=== PATIENT | male | born 1960 | race African-American/Black ===

== ENCOUNTER 2023-11-04 08:34 | Emergency (ER) | payer BC, SELFPAY ==
[2023-11-04 08:36] VITALS: BP 130/84
--- NOTE | 2023-11-04 10:00 | ED.GENMED ---
History of Present Illness
General
Chief Complaint: Musculo-Skeletal Complaint
Source: patient
Exam Limitations: none
Time Seen by Provider: 11/04/23 09:10
Nursing documentation reviewed up to this point in time: agreed with
Travel History
Have you had any contact with someone who has COVID-19?: No
Do you have any symptoms of coronavirus? Fever > 100 degrees, chills, cough, shortness of breath, sore throat, loss of taste or smell, muscle aches, or headache?: No
History of Present Illness
History of Present Illness:
The patient is a 63-year-old man who reports that 3 days ago he tripped over a curb, twisting his right ankle. Patient reports he did not hit his head. He denies any other areas of injury. The patient reports that initially he was able to get up
and walk around with no discomfort. However, he has noticed since then, the outer aspect of his ankle is now swollen and slightly painful. However, he reports he is able to walk without a limp. Patient denies all other complaints. He denies
weakness and numbness of the legs. He reports he has had several episodes of twisting of his ankle in the past many years ago while playing basketball. He denies any known fractures of his ankle in the past. However, he reports that it is always
possible due to various injuries.
Past History
Past History
ED Past Medical History: NIDDM
ED Past Surgical History: Orthopedic
Social History
Tobacco: Non-smoker
Alcohol: Other
Drug: Former user
Personal:
Living: with family
Employment: Other
Family History
Family History: Other
Review of Systems
Review of Systems
Allergies reviewed?: Yes
All Other Systems: ROS reviewed and negative except as documented in HPI and ROS
Constitutional: Reports no symptoms
EENT: Reports no symptoms
Respiratory: Reports no symptoms
Cardiac: Reports no symptoms
ABD/GI: Reports no symptoms
: Reports no symptoms
Musculoskeletal: Reports joint pain, joint swelling and muscle pain
Skin: Reports no symptoms
Neurological: Reports no symptoms
Endocrine: Reports no symptoms
Hematologic/Lymphatic: Reports no symptoms
Psychiatric: Reports no symptoms
Phy Exam
Physical Exam
Physical Exam:
Physical Exam
General: no apparent distress, not acutely ill . Atraumatic appearing face and head
Neck: supple.
Heart: s1/s2 regular rate and rhythm,
Lungs: no acute respiratory distress.
Abdomen: Soft
Neuro: alert and oriented. no focal neurological deficits
Skin: no rash. No lacerations or ecchymoses
Psychiatric: well kept. interactive and cooperative
Extremities: Strong pulses in bilateral feet. Mild swelling and soft tissue tenderness of lateral right ankle area. Patient ambulating without difficulty.
Course
Orders/Labs/Results
Orders:
Orders
11/04/23 08:39
Ankle, Right 3 view CR [CR Ankle - Right Min 3 Views *] Urgent
Comment:
Reason For Exam: injury
11/04/23 09:[address] Non Medication Order As Directed
Physician Order: miah wrap right ankle
Vital Signs
Initial and Last Documented VS:
Initial Vital Signs
Temp Pulse Resp BP Pulse Ox
97.4 F 69 16 130/84 99
11/04/23 08:36 11/04/23 08:36 11/04/23 08:36 11/04/23 08:36 11/04/23 08:36
Last Documented Vital Signs
Temp Pulse Resp BP Pulse Ox
97.4 F 69 16 130/84 99
11/04/23 08:36 11/04/23 08:36 11/04/23 08:36 11/04/23 08:36 11/04/23 08:36
MDM/Problems Addressed
Differential Diagnosis Includes:
Right ankle sprain, right ankle fracture, bony contusion
MDM/Problems Addressed:
Patient presents with acute right ankle swelling and pain
Acute Exacerbation and/or Progression of Chronic Illness:
Patient is acutely hypertensive but only very mildly
Acute Exacerbation and/or Progression of Chronic Illness: HTN
*Radiology
Radiology exam reviewed: preliminary read by ED provider (Right ankle reviewed by me. No acute fracture) and radiology read reviewed
*Pulse Oximetry
Patient hypoxic: no
*EKG
Interpreted by ED Provider?: NA
*Greenstone Polisher Operator Interpretation
Rate: [employer] Polisher Operator- N/A
*Critical Care Note
Total Time (30-74mins, 75-104mins- exclusive of procedures): Not Applicable
Data Reviewed
Source: patient
Patient Management
Discussion with other providers: Radiologist and Other (Showed x-rays to Dr. Jones who agreed that ankle does not appear acutely fractured)
Escalation/DeEscalation of care consider admission/obs:
Patient looks well and comfortable. He is strong pulses in his feet. There is no sign of head or neck trauma. I explained to the patient that the x-ray shows that he likely fractured his right ankle in the past but after reviewing it with
orthopedic doctor, we feel these fractures look chronic and not acute. I explained that this is likely an ankle sprain and not an acute fracture. Patient has minimal pain and is walking around, therefore, it is very doubtful to be an acute
fracture.
ED Attending Note
-
Portions of this chart may have been created with voice recognition software.� Occasional wrong word or��sound alike� substitutions may have occurred due to the inherent limitations of voice recognition software.
Discharge Plan
Departure
Patient Disposition: Home (Routine Discharge)
Date of Disposition: 11/04/23
Time of Disposition: 09:39
Patient with high blood pressure during this ER visit?: Yes
Condition: Good
Covid-19: Not Applicable
Discharge Problem:
Right ankle sprain
Instructions: Ankle Sprain (DC)
Prescriptions:
No Action
multivitamin 1 EACH tablet
3 tablets PO DAILY
Patient Comments:
[employer] Ultimate Man 50+
aspirin [Jose E Low Dose Aspirin] 81 MG tablet,delayed release (DR/EC)
81 mg PO DAILY
losartan 25 MG tablet
25 mg PO DAILY
atorvastatin 40 MG tablet
40 mg PO QPM Qty: 90 10RF
nitroglycerin 0.4 MG tablet, sublingual
0.4 mg sublingual [id number] PRN (Reason: chest pain) Qty: 25 5RF
metformin 500 MG tablet
1,000 mg PO DAILY Qty: 0 0RF
Rx Instructions:
Resume on
Referrals:
Dane Gray MD [Family Provider] -
Activity Restrictions/Additional Instructions:
Take Aleve every 12 hours as needed for pain and swelling. It is important to ice and elevate your right ankle several times a day to reduce swelling and pain. Wear the Miah wrap for support while walking. It could certainly be taken off for
showering
Please follow-up with your doctor in about a week if you are still having moderate pain in your right ankle.
Interventions
Interventions:
*Risk Screen - Suicide Last Done: 11/04/23 08:36
*General Assessment Last Done: 11/04/23 08:36
*Neglect/Abuse Screening Last Done: 11/04/23 08:36
ED- Fall Risk Assessment Last Done: 11/04/23 10:02
*ED COVID-19 Vaccine History Last Done: 11/04/23 10:02
*Nursing Disposition Last Done: 11/04/23 10:02
ED-Musculoskeletal Assessment Last Done: 11/04/23 10:02
Discharge Date and Time
Discharge Date/Time: 11/04/23 10:03
== END 2023-11-04 10:03 | disposition home or self-care (01) ==
LOC: EMR 08:34
PROVIDERS: EMERGENCY PHYSICIAN Emergency Medicine; FAMILY PHYSICIAN Family Medicine
DX: S93.401A Sprain of unspecified ligament of right ankle, initial encounter (principal); W18.09XA Striking against other object with subsequent fall, initial encounter; R03.0 Elevated blood-pressure reading, without diagnosis of hypertension
CPT/HCPCS: 99283; 73610

== ENCOUNTER 2024-06-08 08:50 | Emergency (ER) | payer BC, SELFPAY ==
[2024-06-08 08:52] VITALS: BP 177/109
--- NOTE | 2024-06-08 09:05 | ED.GENMED ---
History of Present Illness
General
Chief Complaint: Heart Rate Problem
Source: patient
Time Seen by Provider: 06/08/24 09:04
History of Present Illness
History of Present Illness:
63yoM with a history of coronary artery disease, hypertension, hyperlipidemia, and type 2 diabetes presenting with his for evaluation of palpitations. Patient was sitting this morning around 8:15am when he started to feel like his heart was
fluttering. He put on his AppleWatch which indicated that he was in atrial fibrillation. He has no history of afib or arrhythmias. He is otherwise asymptomatic and denies any dizziness, syncope, chest pain, shortness of breath, leg swelling.
Patient's director of optimization is Dr. Condon.
Past History
Past History
ED Past Medical History: NIDDM
ED Past Surgical History: Orthopedic
Social History
Tobacco: Non-smoker
Alcohol: Other
Drug: Former user
Personal:
Living: with family
Employment: Other
Family History
Family History: Other
Phy Exam
General Physical Exam
General Presentation: well appearing and no apparent distress
General age: appears stated age
General Skin: warm and dry
General Habitus: normal
General Mental: alert
ENT Exam
ENT Exam: normocephalic
Cardiovascular Exam
Cardiovascular Exam: no edema, no murmur, normal peripheral pulses and irregularly irregular
Pulmonary Exam
Pulmonary Exam: lungs clear, no respiratory distress, no crackles and no wheezing
Tony Coma Scale
Eye Opening: Spontaneous
Verbal Response: Oriented
Motor Response: Obeys Commands
GCS Total Score: 15
Skin Exam
Skin Exam: normal color and warm/dry
Psychiatric Exam
Psychiatric Exam: normal mood/affect
Course
Orders/Labs/Results
Orders:
Orders
06/08/24 08:52
EKG [Electrocardiogram (*1)] Urgent
Reason for Study: Tachycardia
EKG- Treatment ONCE
06/08/24 09:37
Cardiac Monitoring- Treatment ONCE
Complete Blood Count/With Diff Urgent
Comprehensive Metabolic Panel Urgent
Magnesium Urgent
TSH Reflex To Free T4 Urgent
Troponin I Urgent
06/08/24 11:38
Metoprolol [Lopressor] 25 mg PO NOW STA
06/08/24 11:39
Apixaban [Eliquis] 10 mg PO ONCE ONE
06/08/24 11:53
Apixaban [Eliquis] 5 mg PO ONCE ONE
06/08/24 11:57
Case Management Consult ONCE
Case Management Consult: Discharge Planning
Comment: Eliquis pricing
Abnormal Lab Results
06/08/24
09:37
WBC 4.5 L 10^3/uL
(4.8-10.8)
MCH 26.8 L pg
(27.0-31.0)
RDW 15.1 H %
(11.5-14.5)
MPV 12.4 H fL
(7.4-10.4)
Neutrophils % 38.9 L %
(42.2-75.2)
Monocytes % 12.7 H %
(1.7-9.3)
BUN 21 H mg/dl
(9-20)
Glucose 126 H mg/dl
(70-99)
06/08/24 09:37
06/08/24 09:37
Vital Signs
Initial and Last Documented VS:
Initial Vital Signs
Temp Pulse Resp BP Pulse Ox
97.8 F 54 16 177/109 99
06/08/24 08:52 06/08/24 08:52 06/08/24 08:52 06/08/24 08:52 06/08/24 08:52
Last Documented Vital Signs
Temp Pulse Resp BP Pulse Ox
97.8 F 76 15 143/91 99
06/08/24 08:52 06/08/24 12:29 06/08/24 10:45 06/08/24 12:29 06/08/24 12:29
MDM/Problems Addressed
Differential Diagnosis Includes:
63yoM here with palpitations that began this morning. Otherwise asymptomatic. No CP/SOB. No dizziness. VSS. He is well appearing in no distress. Exam shows an irregularly irregular rhythm but is otherwise reassuring. Differential diagnosis includes
but is not limited to: arrhythmia, thyroid dysfunction, electrolyte abnormality
Initial ED plan: EKG done in triage shows rate controlled atrial flutter. No prior history of this. Patient placed on case monitor. Will check cardiac labs, magnesium, and TSH.
*EKG
Interpreted by ED Provider?: Yes
EKG Intrepretation Date: 06/08/24
Heart Rate: 72
Rate: normal
Rhythm: atrial flutter
Kramer: normal axis
Interval: normal interval
QRS Pattern: normal QRS
Ischemia: non-specific ST changes
*Critical Care Note
Total Time (30-74mins, 75-104mins- exclusive of procedures): Not Applicable
Update Note
Update Note:
Labs overall unremarkable including normal electrolytes, TSH, and troponin. Patient remains rate controlled throughout ED stay and is not requiring any IV medications. Patient reports minimal symptoms on reassessment. He is not anticoagulated and
therefore is not a candidate for cardioversion at this time. Discussed with cardiology (Dr. Collins) who agrees with discharge. Patient was started on metoprolol and Eliquis. Case management consulted for Eliquis pricing and he was provided with
coupons. He was advised to f/u closely with his director of optimization. Strict ED return precautions discussed. He expressed understanding and is agreeable to plan. He was discharged in stable condition.
ED Attending Note
-
Portions of this chart may have been created with voice recognition software.� Occasional wrong word or��sound alike� substitutions may have occurred due to the inherent limitations of voice recognition software.
Discharge Plan
Departure
Patient Disposition: Home (Routine Discharge)
Date of Disposition: 06/08/24
Time of Disposition: 11:47
Patient with high blood pressure during this ER visit?: Yes
Discharge Problem:
Atrial fibrillation and flutter
Instructions: Apixaban, Atrial Fibrillation and Atrial Flutter ED, Chest Pain CBC Follow Up
Prescriptions:
New
metoprolol tartrate 25 mg tablet
25 mg PO BID Qty: 60 0RF
Eliquis 5 mg tablet
5 mg PO BID Qty: 60 0RF
No Action
multivitamin 1 EACH tablet
3 tablets PO DAILY
Patient Comments:
[employer] Ultimate Man 50+
aspirin [Jose E Low Dose Aspirin] 81 MG tablet,delayed release (DR/EC)
81 mg PO DAILY
losartan 25 MG tablet
25 mg PO DAILY
atorvastatin 40 MG tablet
40 mg PO QPM Qty: 90 10RF
nitroglycerin 0.4 MG tablet, sublingual
0.4 mg sublingual [id number] PRN (Reason: chest pain) Qty: 25 5RF
metformin 500 MG tablet
1,000 mg PO DAILY Qty: 0 0RF
Rx Instructions:
Resume on
Referrals:
Griffin Condon MD [Active] -
Dane Gray MD [Family Provider] -
Activity Restrictions/Additional Instructions:
Take metoprolol and Eliquis as prescribed.
Please call Dr. Condon's office on Monday to schedule a follow-up for next week.
Return to the ER immediately with any worsening symptoms, heart rate >110, chest pain, dizziness, passing out.
Interventions
Interventions:
*Risk Screen - Suicide Last Done: 06/08/24 08:52
*General Assessment Last Done: 06/08/24 08:52
*Neglect/Abuse Screening Last Done: 06/08/24 08:52
ED- Fall Risk Assessment Last Done: 06/08/24 09:44
*ED COVID-19 Vaccine History Last Done: 06/08/24 09:44
*Nursing Disposition Last Done: 06/08/24 12:37
ED- Cardiac Assessment Last Done: 06/08/24 09:47
ED- Pulmonary Assessment Last Done: 06/08/24 09:47
Discharge Date and Time
Discharge Date/Time: 06/08/24 12:39
Print Language: SCOTTISH
[2024-06-08 09:24] VITALS: BP 156/103
[2024-06-08 09:32] VITALS: BMI 38.5
[2024-06-08 10:00] VITALS: BP 140/99
[2024-06-08 10:03] LABS: ALT (SGPT) 36 U/L (0-50); AST (SGOT) 33 U/L (17-59); Albumin 4.2 g/dl (3.5-5.0); Alkaline Phosphatase 57 U/L (38-126); Blood Urea Nitrogen 21 mg/dl (9-20); Calcium 9.3 mg/dl (8.4-10.2); Carbon Dioxide 28 mmol/L (22-30); Chloride 104 mmol/L (98-107); Estimated Creatinine Clearance 122 ml/min; Glucose 126 mg/dl (70-99); Magnesium 1.9 mg/dl (1.6-2.3); Potassium 4.1 mmol/L (3.5-5.1); Sodium 143 mmol/L (135-145); Total Bilirubin 0.6 mg/dl (0.2-1.3); Total Protein 7.1 g/dl (6.3-8.2); eGFR > 60.00
[2024-06-08 10:09] LABS: Hematocrit 40.9 % (39.0-52.0); Hemoglobin 13.6 g/dL (13.0-18.0); Mean Corp Hgb Conc. 33.3 g/dL (33.0-37.0); Mean Corpuscular Hgb 26.8 pg (27.0-31.0); Mean Corpuscular Volume 80.7 fL (80.0-94.0); Mean Platelet Volume 12.4 fL (7.4-10.4); Platelet Count 136 10^3/uL (130-400); Red Blood Cell Count 5.07 10^6/uL (4.70-6.10); Red Cell Dist. Width 15.1 % (11.5-14.5); White Blood Cell Count 4.5 10^3/uL (4.8-10.8)
[2024-06-08 10:14] LABS: Troponin I < 0.012 ng/ml
[2024-06-08 10:33] LABS: TSH Reflex To Free T4 1.51 uIU/ml (0.47-4.68)
[2024-06-08 10:34] LABS: % Basophils 0.9 % (0-2); % Eosinophils 3.1 % (0-6); % Immature Granulocytes 0.4 % (0-0.5); % Monocytes 12.7 % (1.7-9.3); % Neutrophils 38.9 % (42.2-75.2); Absolute Eosinophils 0.1 10^3/uL (0-0.7); Absolute Monocytes 0.6 10^3/uL (0.1-0.6); Absolute Neutrophils 1.7 10^3/uL (1.4-6.5); Nucleated Red Blood Cells % 0 % (-)
[2024-06-08] MEDS: LOPRESSOR 25 MG PO (11:58)
[2024-06-08] MEDS: ELIQUIS 5 MG PO (12:02)
--- NOTE | 2024-06-08 12:09 | CM ---
Addendum entered by Mariela Tabor 06/08/24 12:24:
and patient verbalized understanding of plan. They understood that CM was not able to get a hold of [facility] at the time and they can call in and request the pricing of his Eliquis rx.
Original Note:
Case management consult for pricing Eliquis. Unable to reach [facility] but gave Eliquis coupons and educational booklet to patient.
[2024-06-08 12:29] VITALS: BP 143/91
== END 2024-06-08 12:39 | disposition home or self-care (01) ==
LOC: EMR 08:50
PROVIDERS: Physician Assistant; EMERGENCY PHYSICIAN Emergency Medicine; FAMILY PHYSICIAN Family Medicine
DX: I48.91 Unspecified atrial fibrillation (principal); I48.92 Unspecified atrial flutter; E11.9 Type 2 diabetes mellitus without complications; I10 Essential (primary) hypertension; E78.5 Hyperlipidemia, unspecified; Z79.82 Long term (current) use of aspirin; Z79.84 Long term (current) use of oral hypoglycemic drugs
CPT/HCPCS: 99284; 80053; 83735; 84443; 84484; 85025; 93005

== ENCOUNTER → 2024-07-01 07:03 | Day surgery (SDC) | payer BC, SELFPAY ==
[2024-07-01 07:50] VITALS: BMI 40.1
--- NOTE | 2024-07-01 08:36 | ITS.CL.CARDI ---
Mmd Unit Teacher - Cardioversion
Cardioversion
Procedure Report:
Date of Procedure: 07/01/24.
Procedure: Cardioversion.
Indication: Symptomatic atrial fibrillation.
Performing Physician: Dorothy Chase MD
Technique: The patient was brought to the holding area. Signed informed consent was obtained. A time out was called and performed. The patient was sedated by a member of the anesthesia service. Anticoagulation status was reviewed and was
appropriate. R-2 pads were placed anteriorly and posteriorly. A 200J synchronized biphasic shock restored normal sinus rhythm without significant bradycardia. There were no complications.
Conclusion: Uncomplicated cardioversion from atrial fibrillation to sinus rhythm.
Recommendation: Routine post cardioversion care. Continue termite control representative anticoagulation.
cc: [facility]
== END ==
LOC: CATH 07:03
PROVIDERS: ATTENDING PHYSICIAN Internal Medicine Cardiovascular Disease; FAMILY PHYSICIAN Family Medicine
DX: I48.91 Unspecified atrial fibrillation (principal); I25.10 Atherosclerotic heart disease of native coronary artery without angina pectoris; I10 Essential (primary) hypertension; Z85.46 Personal history of malignant neoplasm of prostate; Z79.01 Long term (current) use of anticoagulants
CPT/HCPCS: 92960; 93005

== ENCOUNTER 2024-07-03 17:31 | Emergency (ER) | payer BC, SELFPAY ==
[2024-07-03 17:42] VITALS: BP 152/96
--- NOTE | 2024-07-03 19:36 | ED.GENMED ---
History of Present Illness
General
Chief Complaint: Musculo-Skeletal Complaint
Source: patient and spouse
Exam Limitations: none
Time Seen by Provider: 07/03/24 19:27
Nursing documentation reviewed up to this point in time: agreed with
History of Present Illness
History of Present Illness:
63-year-old male with a past medical history of hypertension, hyperlipidemia, atrial fibrillation on Eliquis, diabetes who presents to the emergency room for evaluation of left lower extremity pain and swelling�specifically in the left ankle.
Patient reports that he was in his normal state of health when he woke up this morning. He says that he went out to go shopping at [employer] and when he returned from shopping he noticed that he had some swelling in his lateral left ankle. He
says he immediately iced it and elevated it but when he got up to put pressure on it he noticed that he was having some increasing pain. Came to the emergency room be evaluated. He denies any trauma or injury that he can recall. Denies any other
complaints. He is notably 3 weeks status post super nice cardioversion for A-fib and has been on Eliquis since.
Past History
Past History
ED Past Medical History: NIDDM
ED Past Surgical History: Orthopedic
Social History
Tobacco: Non-smoker
Alcohol: Other
Drug: Former user
Personal:
Living: with family
Employment: Other
Family History
Family History: Other
Review of Systems
Review of Systems
All Other Systems: ROS reviewed and negative except as documented in HPI and ROS
Musculoskeletal: Reports other (Ankle pain and swelling)
Phy Exam
Physical Exam
Physical Exam:
General: Awake, alert; no acute distress
Head: Normocephalic, atraumatic
Eyes: Conjunctiva normal
Throat: Airway intact, handling secretions
Neck: Trachea midline
Lungs: Breathing comfortably no distress
Heart: Regular rate; good strong DP and PT pulses left lower extremity
Neuro: No gross deficits
Skin: no rash, no redness or warmth of the skin around the left ankle
Extremities: Patient has swelling over the lateral malleolus and the left ankle, mild tenderness in this area; no tenderness of the medial malleolus, no tenderness of calcaneus, no midfoot tenderness, no defect in the Achilles tendon, no calf edema
or tenderness, good pulses as above; foot is warm and well-perfused
Scores
Heart Failure Risk
Heart Failure Risk Score: Not Applicable
Heart Score for Chest Pain Patients
STEMI patient?: Not applicable
Withdrawal Assessment of Alcohol
Withdrawal Assessment Completed?: Not applicable
Course
Orders/Labs/Results
Orders:
Orders
07/03/24 17:48
CR Ankle - Left Min 3 Views Urgent
Comment:
Reason For Exam: swelling and pain
07/03/24 19:35
US Periph Venous LOWER Ext LT Urgent
Comment:
Reason For Exam: LLE swelling, pain
Vital Signs
Initial and Last Documented VS:
Initial Vital Signs
Temp Pulse Resp BP Pulse Ox
37.1 C 66 16 152/96 98
07/03/24 17:42 07/03/24 17:42 07/03/24 17:42 07/03/24 17:42 07/03/24 17:42
Last Documented Vital Signs
Temp Pulse Resp BP Pulse Ox
37.1 C 66 16 152/96 98
07/03/24 17:42 07/03/24 17:42 07/03/24 17:42 07/03/24 17:42 07/03/24 17:42
MDM/Problems Addressed
Differential Diagnosis Includes:
Ankle sprain, ankle fracture, hematoma, DVT less likely
MDM/Problems Addressed:
63-year-old male presents to the emergency room for evaluation of swelling and pain in the left ankle�denies any injury or trauma. Has notably been on Eliquis recently after cardioversion for A-fib. Hypertensive otherwise normal vitals. Exam as
above. Suspect likely hematoma from some minor/occult trauma; he had an x-ray in triage which was negative for any acute fracture. Will check ultrasound to rule out DVT in an abundance of caution. If negative plan for discharge with instructions
for RICE.
Chronic conditions affecting care:
A-fib on Eliquis
Acute Exacerbation and/or Progression of Chronic Illness:
Acutely hypertensive without signs or symptoms of hypertensive emergency�no indication for emergent antihypertensive treatment
Acute Exacerbation and/or Progression of Chronic Illness: HTN
*Radiology
Radiology exam reviewed: radiology read reviewed
*Pulse Oximetry
Patient hypoxic: no
*Critical Care Note
Total Time (30-74mins, 75-104mins- exclusive of procedures): Not Applicable
Data Reviewed
Review of Other/Old Records Reveals: Records
Source: patient, records and spouse
ED Attending Note
-
Portions of this chart may have been created with voice recognition software.� Occasional wrong word or��sound alike� substitutions may have occurred due to the inherent limitations of voice recognition software.
Discharge Plan
Departure
Prescriptions:
No Action
multivitamin 1 EACH tablet
3 tablets PO DAILY
Patient Comments:
[employer] Ultimate Man 50+
losartan 25 MG tablet
25 mg PO DAILY
atorvastatin 40 MG tablet
40 mg PO QPM Qty: 90 10RF
nitroglycerin 0.4 MG tablet, sublingual
0.4 mg sublingual [id number] PRN (Reason: chest pain) Qty: 25 5RF
metformin 500 MG tablet
1,000 mg PO DAILY Qty: 0 0RF
Rx Instructions:
Resume on
metoprolol tartrate 25 mg tablet
25 mg PO BID Qty: 60 0RF
Eliquis 5 mg tablet
5 mg PO BID Qty: 60 0RF
ezetimibe 10 mg Tablet
10 mg PO DAILY
Interventions
Interventions:
*ED COVID-19 Vaccine History Last Done: 07/03/24 17:42
Discharge Date and Time
Print Language: JAPANESE
== END 2024-07-03 20:30 | disposition home or self-care (01) ==
LOC: EMR 17:31
PROVIDERS: EMERGENCY PHYSICIAN Emergency Medicine; FAMILY PHYSICIAN Family Medicine
DX: S90.02XA Contusion of left ankle, initial encounter (principal); X58.XXXA Exposure to other specified factors, initial encounter; M79.605 Pain in left leg; I10 Essential (primary) hypertension; E78.00 Pure hypercholesterolemia, unspecified; E11.9 Type 2 diabetes mellitus without complications; I48.91 Unspecified atrial fibrillation; Z79.01 Long term (current) use of anticoagulants
CPT/HCPCS: 99284; 73610; 93971

== ENCOUNTER → 2024-08-21 08:07 | Outpatient (REF) | payer BC, SELFPAY | LOC: HWRCS 08:07 | PROVIDERS: ATTENDING PHYSICIAN Internal Medicine; FAMILY PHYSICIAN Family Medicine | DX: I25.10 Atherosclerotic heart disease of native coronary artery without angina pectoris (principal); I10 Essential (primary) hypertension; I24.0 Acute coronary thrombosis not resulting in myocardial infarction; I48.92 Unspecified atrial flutter | CPT/HCPCS: 93306 ==